=== PATIENT | female | born 1990 | race Caucasian/White ===

== ENCOUNTER 2016-08-14 19:37 | Emergency (ER) | payer OTHER | END 2016-08-14 22:10 | disposition home or self-care (01) | LOC: ER1 19:37 | DX: G43.909 Migraine, unspecified, not intractable, without status migrainosus (principal); J06.9 Acute upper respiratory infection, unspecified | CPT/HCPCS: 87081; 87880; 96374; 96375; 99283; J1200; J1885; J2765 ==

== ENCOUNTER 2016-08-22 15:42 | Emergency (ER) | payer OTHER | END 2016-08-22 20:15 | disposition home or self-care (01) | LOC: ER1 15:42 | DX: J10.1 Influenza due to other identified influenza virus with other respiratory manifestations (principal) | CPT/HCPCS: 87081; 87880; 99283 ==